=== PATIENT | female | born 1975 | race Caucasian/White ===

== ENCOUNTER 2018-04-06 23:47 | Inpatient (IN) | payer BC ==
[~2018-04-06] VITALS: Ht 170.2 cm; Wt 86.3 kg
[~2018-04-06 23:47] MED LIST: CELEBREX200 MG PO; KLONOPIN0.5 M1 PO; LAMICTAL150 M1 PO; LYRICA CR165 MG PO; NEXIUM40 MG PO; ULTRACET1 TABLET PO; VITAMIN D31000 UNI2 PO; ZANAFLEX2 M1 PO; ZOLOFT100 MG PO
[2018-04-07 06:08] VITALS: BP 112/54
[2018-04-07 12:44] VITALS: BP 92/51
[2018-04-07 16:18] VITALS: BP 87/50
[2018-04-07 18:46] VITALS: BP 92/60
[2018-04-07 19:21] VITALS: BP 88/49
[2018-04-07 23:41] VITALS: BP 77/48
[2018-04-08] VITALS (7 sets, daily range): BP systolic 82–111; BP diastolic 47–68
[2018-04-09 07:38] VITALS: BP 97/52
[2018-04-09 15:45] VITALS: BP 92/51
== END 2018-04-09 17:47 | disposition home or self-care (01) | DRG 460 ==
LOC: ENRESERV 23:47 → 2SOUTH 04-07 05:40 → 3EAST 04-07 05:40 → 2SOUTH 04-07 09:41 → ENRESERV 04-07 11:29 → 2SOUTH 04-07 11:46 → 3EAST 04-07 11:50 → 2SOUTH 04-07 11:53 → 3EAST 04-09 17:47
PROC: 0SG30A0 Fusion of Lumbosacral Joint with Interbody Fusion Device, Anterior Approach, Anterior Column, Open Approach (ICD-10-PCS; principal; 2018-04-07)
DX: M51.17 Intervertebral disc disorders with radiculopathy, lumbosacral region (principal); K21.9 Gastro-esophageal reflux disease without esophagitis; F41.9 Anxiety disorder, unspecified; F32.9 Major depressive disorder, single episode, unspecified; J45.909 Unspecified asthma, uncomplicated; E55.9 Vitamin D deficiency, unspecified
CPT/HCPCS: 72100; 76000; 86850; 86900; 86901; C1713; J0131; J0330; J0690; J1100; J1170; J1885; J2250; J2405; J2710; J3010; J3480; J7030; J7040; J7643